=== PATIENT | female | born 1940 | race Caucasian/White ===

== ENCOUNTER 2017-05-17 00:31 | Inpatient (IN) | payer OTHER ==
[~2017-05-17] VITALS: Ht 170.2 cm; Wt 78.7 kg
[~2017-05-17 00:31] MED LIST: ATORVASTATIN CA40 M1 PO; BAY PO; GLU500 PO; GLYBURIDE5 MG PO; LAC PO; LEVAQUIN750 MG PO; ZES20 PO
[2017-05-17 02:15] LABS: CALCIUM 8.7 mg/dL (8.5-10.1); CARBON DIOXIDE 23.7 mmol/L (21-32); CHLORIDE SERUM 103 mmol/L (98-107); CREATININE SERUM 1.2 mg/dL (0.6-1.0); GLUCOSE SERUM 268 mg/dL (74-106); POTASSIUM SERUM 3.9 mmol/L (3.5-5.1); SODIUM SERUM 137 mmol/L (136-145)
[2017-05-17 02:20] LABS: ALKALINE PHOSPHATASE 68 U/L (46-116); AST/SGOT 17 U/L (15-37); TOTAL PROTEIN, SERUM 6.6 g/dL (6.4-8.2)
[2017-05-17 02:26] LABS: ALBUMIN 3.2 g/dL (3.4-5.0)
[2017-05-17 02:37] LABS: PLATELET COUNT 210 x10^3mcL (130-400)
[2017-05-17 02:38] LABS: BASOPHIL % 0.6 % (0-2)
[2017-05-17 02:42] LABS: ALT/SGPT 26 U/L (14-59)
[2017-05-17 04:52] VITALS: BP 177/69
[2017-05-17 04:59] LABS: CHOLESTEROL/HDL RATIO 6.1; MAGNESIUM 2.1 mg/dL (1.8-2.4); PHOSPHOROUS 3.2 mg/dL (2.5-4.9)
[2017-05-17 05:03] LABS: T3 TOTAL 1.15 ng/mL
[2017-05-17 05:04] LABS: microscopic required? YES; urine erythrocyte NEGATIVE (NEGATIVE)
[2017-05-17 05:09] LABS: FREE T4 1.06 ng/dL (0.76-1.46); FREE THYROXINE INDEX 2.5 ug/dL (1.4-4.5); T4(THYROXINE) 7.2 ug/dL (4.7-13.3)
[2017-05-17 09:20] VITALS: BP 188/69
[2017-05-17 12:19] VITALS: BP 131/57
[2017-05-17] MEDS ORDERED: NOR5 PO (17:19)
[2017-05-17] MEDS ORDERED: THE PO (17:19)
[2017-05-17] MEDS ORDERED: NITROGLYCERIN0.4 MG SL (17:19)
[2017-05-17] MEDS ORDERED: PROMETHAZINE V118 M2 PO (17:19)
[2017-05-17] MEDS ORDERED: LOSARTAN POTASS1 TAB PO (17:19)
[2017-05-17] MEDS ORDERED: METP PO (17:19)
[2017-05-17] MEDS ORDERED: METOPROLOL TAR100 MG PO (17:24)
[2017-05-17 17:59] VITALS: BP 145/48
[2017-05-17 22:13] VITALS: BP 168/91
[2017-05-18 06:10] VITALS: BP 150/60
[2017-05-18 06:54] LABS: BASOPHIL % 1.1 % (0-2); PLATELET COUNT 211 x10^3mcL (130-400)
[2017-05-18 07:26] LABS: CALCIUM 8.8 mg/dL (8.5-10.1); CARBON DIOXIDE 25.5 mmol/L (21-32); CHLORIDE SERUM 107 mmol/L (98-107); GLUCOSE SERUM 107 mg/dL (74-106); MAGNESIUM 2.1 mg/dL (1.8-2.4); PHOSPHOROUS 3.5 mg/dL (2.5-4.9); POTASSIUM SERUM 4.2 mmol/L (3.5-5.1); SODIUM SERUM 142 mmol/L (136-145)
[2017-05-18 09:38] VITALS: BP 130/64
[2017-05-18 17:42] VITALS: BP 161/69
[2017-05-18 21:02] VITALS: BP 178/95
[2017-05-18 22:09] VITALS: BP 151/49
[2017-05-19 05:39] VITALS: BP 187/70
[2017-05-19 06:56] LABS: BASOPHIL % 0.5 % (0-2); PLATELET COUNT 196 x10^3mcL (130-400); RED CELL DISTRIBUTION WIDTH 13.4 % (11.5-14.5)
[2017-05-19 07:10] LABS: CALCIUM 8.9 mg/dL (8.5-10.1); CARBON DIOXIDE 25.8 mmol/L (21-32); CHLORIDE SERUM 105 mmol/L (98-107); CREATININE SERUM 0.9 mg/dL (0.6-1.0); GLUCOSE SERUM 120 mg/dL (74-106); MAGNESIUM 2.2 mg/dL (1.8-2.4); PHOSPHOROUS 3.9 mg/dL (2.5-4.9); POTASSIUM SERUM 3.9 mmol/L (3.5-5.1); SODIUM SERUM 142 mmol/L (136-145)
[2017-05-19 08:15] VITALS: BP 149/53
[2017-05-19 12:25] VITALS: BP 158/70
[2017-05-19 13:00] VITALS: BP 120/55
[2017-05-19 14:21] VITALS: BP 120/55
[2017-05-19] MEDS ORDERED: LEVAQUIN750 MG PO (15:05)
[2017-05-19] MEDS ORDERED: METOPROLOL TAR100 MG PO (15:25)
[2017-05-19 15:50] VITALS: BP 120/55
== END 2017-05-19 16:30 | disposition home or self-care (01) | DRG 312 ==
LOC: ED 00:31 → DU 03:06
PROVIDERS: Emergency Medicine; Family Medicine
DX: R55 Syncope and collapse (principal); N39.0 Urinary tract infection, site not specified; I24.8 Other forms of acute ischemic heart disease; E44.0 Moderate protein-calorie malnutrition; D68.69 Other thrombophilia; I16.0 Hypertensive urgency; E11.59 Type 2 diabetes mellitus with other circulatory complications; E11.65 Type 2 diabetes mellitus with hyperglycemia; E66.3 Overweight; Z68.27 Body mass index [BMI] 27.0-27.9, adult; Z79.84 Long term (current) use of oral hypoglycemic drugs; Z79.82 Long term (current) use of aspirin
CPT/HCPCS: 82962; 83880; 84439; J0360; J1644; J1956; J3490; J7030; J7042; Q0092

== ENCOUNTER 2017-10-07 15:18 | Emergency (ER) | payer OTHER ==
[~2017-10-07] VITALS: Ht 172.7 cm; Wt 80.7 kg
[~2017-10-07 15:18] MED LIST changes: +LOSARTAN POTASS1 TAB PO; +METOPROLOL TAR100 MG PO; +METP PO; +NITROGLYCERIN0.4 MG SL; +NOR5 PO; +PROMETHAZINE V118 M2 PO; +THE PO
[2017-10-07 15:21] VITALS: Ht 172.7 cm; Wt 80.7 kg
[2017-10-07 16:02] LABS: BASOPHIL % 0.5 % (0-2); PLATELET COUNT 203 x10^3mcL (130-400); RED CELL DISTRIBUTION WIDTH 13.6 % (11.5-14.5)
[2017-10-07 16:12] LABS: CALCIUM 8.5 mg/dL (8.5-10.1); CARBON DIOXIDE 28.6 mmol/L (21-32); CHLORIDE SERUM 95 mmol/L (98-107); GLUCOSE SERUM 194 mg/dL (74-106); POTASSIUM SERUM 3.9 mmol/L (3.5-5.1); SODIUM SERUM 130 mmol/L (136-145)
[2017-10-07 16:16] LABS: ALBUMIN 3.7 g/dL (3.4-5.0); ALKALINE PHOSPHATASE 74 U/L (46-116); ALT/SGPT 30 U/L (14-59); AST/SGOT 23 U/L (15-37); BILIRUBIN TOTAL 0.5 mg/dL (0.20-1.00); CHOLESTEROL 196 mg/dL (<200); HDL CHOLESTEROL 43 mg/dL (40-60); PHOSPHOROUS 2.7 mg/dL (2.5-4.9); TOTAL PROTEIN, SERUM 7.1 g/dL (6.4-8.2)
[2017-10-07 17:07] VITALS: BP 125/67
== END 2017-10-07 17:07 | disposition home or self-care (01) ==
LOC: ED 15:18
PROVIDERS: Emergency Medicine
DX: I16.0 Hypertensive urgency (principal); E11.9 Type 2 diabetes mellitus without complications
CPT/HCPCS: 36415; 83880

== ENCOUNTER 2017-10-25 15:41 | Inpatient (IN) | payer OTHER ==
[~2017-10-25] VITALS: Ht 172.7 cm; Wt 77.6 kg
[2017-10-25 15:47] VITALS: Ht 172.7 cm; Wt 77.6 kg
[2017-10-25 16:35] LABS: BASOPHIL % 0.7 % (0-2); PLATELET COUNT 240 x10^3mcL (130-400); RED CELL DISTRIBUTION WIDTH 13.7 % (11.5-14.5)
[2017-10-25 16:41] LABS: CALCIUM 9.5 mg/dL (8.5-10.1); CARBON DIOXIDE 30.2 mmol/L (21-32); CHLORIDE SERUM 98 mmol/L (98-107); CREATININE SERUM 1.1 mg/dL (0.6-1.0); GLUCOSE SERUM 143 mg/dL (74-106); POTASSIUM SERUM 4.1 mmol/L (3.5-5.1); SODIUM SERUM 135 mmol/L (136-145)
[2017-10-25 16:57] LABS: T3 TOTAL 1.07 ng/mL
[2017-10-25 16:58] LABS: ALBUMIN 3.8 g/dL (3.4-5.0); ALKALINE PHOSPHATASE 71 U/L (46-116); ALT/SGPT 30 U/L (14-59); AST/SGOT 25 U/L (15-37); BILIRUBIN TOTAL 0.34 mg/dL (0.20-1.00); MAGNESIUM 2.2 mg/dL (1.8-2.4); TOTAL PROTEIN, SERUM 7.5 g/dL (6.4-8.2)
[2017-10-25 17:24] LABS: FREE T4 1.1 ng/dL (0.76-1.46); FREE THYROXINE INDEX 3.1 ug/dL (1.4-4.5); T4(THYROXINE) 9.4 ug/dL (4.7-13.3)
[2017-10-25 18:39] LABS: PHOSPHOROUS 3.9 mg/dL (2.5-4.9)
[2017-10-25 19:47] VITALS: BP 200/60
[2017-10-25 22:28] VITALS: BP 169/53
[2017-10-25 22:39] VITALS: BP 121/42
[2017-10-26] VITALS (8 sets, daily range): BP systolic 148–191; BP diastolic 51–66
[2017-10-26 03:39] LABS: BASOPHIL % 0.6 % (0-2); PLATELET COUNT 202 x10^3mcL (130-400); RED CELL DISTRIBUTION WIDTH 13.9 % (11.5-14.5)
[2017-10-26 04:26] LABS: CALCIUM 8.6 mg/dL (8.5-10.1); CARBON DIOXIDE 29.3 mmol/L (21-32); CHLORIDE SERUM 103 mmol/L (98-107); GLUCOSE SERUM 82 mg/dL (74-106); PHOSPHOROUS 3.7 mg/dL (2.5-4.9); POTASSIUM SERUM 3.9 mmol/L (3.5-5.1); SODIUM SERUM 138 mmol/L (136-145)
[2017-10-26 06:23] LABS: microscopic required? NO
[2017-10-26 08:29] LABS: UA SPECIFIC GRAVITY <=1.005 (1.005-1.035); urine erythrocyte NEGATIVE (NEGATIVE)
[2017-10-26 08:43] LABS: AMPHETAMINE QUAL UR NONE DETECTED (See below)
[2017-10-27 06:02] VITALS: BP 148/40
[2017-10-27] MEDS ORDERED: LIPI10 PO (06:53)
[2017-10-27] MEDS ORDERED: LOSARTAN POTASS1 TAB PO (06:57)
[2017-10-27] MEDS ORDERED: ASPIR 8181 MG PO (09:10)
[2017-10-27] MEDS ORDERED: BUS5 PO (09:10)
[2017-10-27 10:11] VITALS: BP 137/47
[2017-10-27 10:59] VITALS: BP 137/47
== END 2017-10-27 12:54 | disposition home or self-care (01) | DRG 281 ==
LOC: ED 15:41 → DU 17:23 → EDBEDREQ 17:29 → DU 19:01
PROVIDERS: Emergency Medicine; Family Medicine
DX: I21.A1 Myocardial infarction type 2 (principal); I67.4 Hypertensive encephalopathy; E11.65 Type 2 diabetes mellitus with hyperglycemia; F41.1 Generalized anxiety disorder; I10 Essential (primary) hypertension; E78.5 Hyperlipidemia, unspecified; Z79.82 Long term (current) use of aspirin; Z68.26 Body mass index [BMI] 26.0-26.9, adult
CPT/HCPCS: 82962; 83880; 84439; J1644; J3490; J7030; Q0092